=== PATIENT | female | born 1995 | race Caucasian/White ===

== ENCOUNTER → 2016-05-02 | Outpatient (REF) ==
[2016-05-02 16:38] LABS: HIV 1/2 Antibodies Non-Reactive; HIV-1p24 Antigen Non-Reactive
== END ==
LOC: ZLAB.WCH 15:47
PROVIDERS: Family Medicine
DX: Z01.89 Encounter for other specified special examinations (principal)

== ENCOUNTER → 2016-05-03 | Outpatient (REF) ==
[2016-05-03 13:13] LABS: CHLAMYDIA/TRACH by PCR Female NOT DETECTED; NEISSERIA GON by PCR Female NOT DETECTED
== END ==
LOC: ZLAB.WCH 11:35
PROVIDERS: Family Medicine
DX: Z01.89 Encounter for other specified special examinations (principal)

== ENCOUNTER → 2016-05-15 | Outpatient (REF) | LOC: ZLAB.WCH 10:27 | DX: Z01.89 Encounter for other specified special examinations (principal) ==

== ENCOUNTER → 2016-12-26 | Outpatient (REF) | LOC: ZLAB.WCH 08:37 | DX: Z01.89 Encounter for other specified special examinations (principal) ==

== ENCOUNTER 2017-11-24 21:08 | Outpatient (CLI) | payer BC ==
[~2017-11-24] VITALS: Ht 162.6 cm; Wt 77.7 kg
[2017-11-24] MEDS ORDERED: PRENATA1 CTB PO (21:43)
[2017-11-24 21:44] VITALS: BP 123/75; PULSE 75; TEMP 98.1
[2017-11-24] MEDS ORDERED: NATURAL IRON65 MG PO (21:44)
== END 2017-11-24 22:55 | disposition home or self-care (01) ==
LOC: LDRO 21:08
DX: Z34.93 Encounter for supervision of normal pregnancy, unspecified, third trimester (principal); Z3A.39 39 weeks gestation of pregnancy

== ENCOUNTER 2017-11-29 00:15 | Inpatient (IN) | payer BC ==
[2017-11-29] VITALS (52 sets, daily range): BP systolic 106–149; BP diastolic 53–92; PULSE 64–93; TEMP 97.9–98.7
[~2017-11-29] VITALS: Ht 160 cm; Wt 78.6 kg
[~2017-11-29 00:15] MED LIST: NATURAL IRON65 MG PO; PRENATA1 CTB PO
[2017-11-29 04:13] LABS: HEMOGLOBIN 10.1 g/dl (12.5-16.0); MEAN CELL VOLUME 89 fl (80.0-100.0); MEAN CORPUSCULAR HEMOGLOBIN 28 pg (27.0-31.0); MEAN CORPUSCULAR HGB CONC 32 g/dl (33.0-37.0); MEAN PLATELET VOLUME 12.1 fl (7.4-10.4); PLATELET COUNT 216 K/mm3 (130-400); REDCELL DISTRIBUTION WIDTH-CV 14.4 % (11.5-14.5)
[2017-11-29 07:52] LABS: BAND 19 % (0-10); EOSINOPHIL 1 % (0-4); LYMPHOCYTE 24 % (20.0-51.0); NEUTROPHILS 50 % (42.0-75.2); PLATELET ESTIMATE NORMAL (NORMAL)
[2017-11-30 02:45] VITALS: BP 117/66; PULSE 71; TEMP 98
[2017-11-30 07:10] VITALS: BP 120/70; PULSE 84; TEMP 98.4
[2017-11-30 16:49] VITALS: BP 125/85; PULSE 83; TEMP 98.3
[2017-11-30 20:25] VITALS: BP 111/59; PULSE 76; TEMP 97.5
[2017-12-01 07:00] VITALS: BP 134/73; PULSE 80
[2017-12-01] MEDS ORDERED: IBU800 M1 PO (08:28)
== END 2017-12-01 12:35 | disposition home or self-care (01) | DRG 807 ==
LOC: LDRO 00:15 → OB 02:45 → LDR 02:45 → OB 17:00
PROVIDERS: Obstetrics & Gynecology
PROC: 10E0XZZ Delivery of Products of Conception, External Approach (ICD-10-PCS; principal; 2017-11-29)
PROC: 0HQ9XZZ Repair Perineum Skin, External Approach (ICD-10-PCS; 2017-11-29)
PROC: 0UQMXZZ Repair Vulva, External Approach (ICD-10-PCS; 2017-11-29)
PROC: 10907ZC Drainage of Amniotic Fluid, Therapeutic from Products of Conception, Via Natural or Artificial Opening (ICD-10-PCS; 2017-11-29)
DX: O99.89 Other specified diseases and conditions complicating pregnancy, childbirth and the puerperium (principal); Z37.0 Single live birth; N87.9 Dysplasia of cervix uteri, unspecified; Z3A.40 40 weeks gestation of pregnancy; O71.82 Other specified trauma to perineum and vulva; O70.0 First degree perineal laceration during delivery; O62.2 Other uterine inertia; O76 Abnormality in fetal heart rate and rhythm complicating labor and delivery; O99.824 Streptococcus B carrier state complicating childbirth; O99.02 Anemia complicating childbirth; D64.9 Anemia, unspecified; O77.0 Labor and delivery complicated by meconium in amniotic fluid
CPT/HCPCS: J2405; J2540; J2590; J2795; J7120

== ENCOUNTER → 2020-09-18 | Outpatient (REF) ==
[~2020-09-18] MED LIST changes: +IBU800 M1 PO; +NORCO 325 MG-51 TAB PO
== END ==
LOC: COL.LAB 12:46
DX: Z20.822 Contact with and (suspected) exposure to COVID-19 (principal)

== ENCOUNTER 2020-10-08 15:32 | Emergency (ER) | payer SELFPAY ==
[~2020-10-08] VITALS: Ht 162.6 cm; Wt 77.3 kg
[~2020-10-08 15:32] MED LIST changes: -NORCO 325 MG-51 TAB PO
[2020-10-08 17:59] LABS: COLLECTION METHOD CLEAN CATCH
[2020-10-08 18:11] LABS: MUCOUS Present /lpf; PH 5 (5-8); SQUAMOUS EPITHELIAL 0-2 /hpf; URINE APPEARANCE Clear; URINE BACTERIA None Seen /hpf; URINE BILIRUBIN Negative (NEGATIVE); URINE BLOOD Negative (NEGATIVE); URINE COLOR Yellow; URINE GLUCOSE Negative (NEGATIVE); URINE KETONE Negative (NEGATIVE); URINE LEUKOCYTE ESTERASE Negative (NEGATIVE); URINE NITRATE Negative (NEGATIVE); URINE PROTEIN(semi-quant) Negative (NEGATIVE); URINE RBC 0-2 /hpf; URINE UROBILINOGEN Negative (NEGATIVE)
[2020-10-08 18:46] LABS: BASO % 0.3 % (0.0-2.0); EOS # 0.2 (0.0-0.7); GRAN # 5.5 (1.4-6.5); GRAN % 61.8 % (42.2-75.2); HEMATOCRIT 41.2 % (37.0-47.0); HEMOGLOBIN 13.4 g/dl (12.5-16.0); LYMPH # 2.4 (1.2-3.4); LYMPH % 26.8 % (20.0-51.0); MEAN CELL VOLUME 93 fl (80.0-100.0); MEAN CORPUSCULAR HEMOGLOBIN 30 pg (27.0-31.0); MEAN CORPUSCULAR HGB CONC 33 g/dl (33.0-37.0); MEAN PLATELET VOLUME 10.1 fl (7.4-10.4); MONO # 0.8 (0.1-0.6); MONO % 8.8 % (1.7-9.3); PLATELET COUNT 315 K/mm3 (130-400); RED BLOOD COUNT 4.42 M/mm3 (4.10-5.30); REDCELL DISTRIBUTION WIDTH-CV 12.4 % (11.5-14.5)
[2020-10-08 18:56] LABS: ALBUMIN 4.9 gm/dL (3.5-5.0); BILIRUBIN,TOTAL 0.5 mg/dL (0.0-1.0); C-REACTIVE PROTEIN 0.8 mg/dL (0.0-0.9); CALCIUM 9.8 mg/dL (8.4-10.2); CREATININE, serum 0.61 (0.52-1.25); POTASSIUM 4.9 mmol/L (3.4-5.0); TOTAL PROTEIN 9.2 gm/dL (6.4-8.2)
[2020-10-08] MEDS ORDERED: NORCO 325 MG-51 TAB PO (19:41)
[2020-10-08 20:13] VITALS: BP 138/90; PULSE 75; TEMP 98.7
== END 2020-10-08 20:13 | disposition home or self-care (01) ==
LOC: COL.ER 15:32
PROVIDERS: Physician Assistant
DX: R10.31 Right lower quadrant pain (principal); R11.2 Nausea with vomiting, unspecified; Z32.02 Encounter for pregnancy test, result negative
CPT/HCPCS: J1885; J2405; J7030

== ENCOUNTER 2022-02-17 11:42 | Emergency (ER) | payer BC ==
[~2022-02-17] VITALS: Ht 162.6 cm; Wt 70.5 kg
[~2022-02-17 11:42] MED LIST changes: +NORCO 325 MG-51 TAB PO
[2022-02-17 11:47] VITALS: TEMP 97.8
[2022-02-17 13:57] LABS: COLLECTION METHOD CLEAN CATCH
[2022-02-17 14:09] LABS: MUCOUS Present (NOT PRESENT); SQUAMOUS EPITHELIAL 0-2 /hpf (0-10); URINE APPEARANCE Cloudy (CLEAR/HAZY); URINE BACTERIA None Seen /hpf (NONE SEEN); URINE COLOR Amber (YELLOW); URINE RBC >50 /hpf (0-2)
[2022-02-17 14:10] LABS: URINE GLUCOSE Negative (NEGATIVE); URINE KETONE TRACE (NEGATIVE); URINE NITRATE Negative (NEGATIVE); URINE PROTEIN(semi-quant) 1+ (NEGATIVE); URINE UROBILINOGEN 0.2 E.U/dL (0.2-1.0)
[2022-02-17 14:11] LABS: URINE BLOOD 3+ (NEGATIVE)
[2022-02-17 14:38] LABS: BASO % 0.3 % (0.0-2.0); EOS # 0.2 K/mm3 (0.0-0.7); GRAN # 5.6 K/mm3 (1.4-6.5); GRAN % 62.1 % (42.2-75.2); HEMOGLOBIN 11.3 g/dl (12.5-16.0); LYMPH # 2.4 K/mm3 (1.2-3.4); LYMPH % 26.5 % (20.0-51.0); MEAN CELL VOLUME 93 fl (80.0-100.0); MEAN CORPUSCULAR HEMOGLOBIN 31 pg (27-31); MEAN CORPUSCULAR HGB CONC 34 g/dl (33.0-37.0); MEAN PLATELET VOLUME 9.9 fl (7.4-10.4); MONO # 0.8 K/mm3 (0.1-0.6); MONO % 8.9 % (1.7-9.3); PLATELET COUNT 329 K/mm3 (130-400); RED BLOOD COUNT 3.61 M/mm3 (4.10-5.30); REDCELL DISTRIBUTION WIDTH-CV 12.4 % (11.5-14.5)
[2022-02-17 14:42] LABS: HEMATOCRIT 33.7 % (37.0-47.0)
[2022-02-17 14:44] LABS: INR 1.1 (0.8-3.0); PROTHROMBIN TIME 12.1 SECONDS (9.7-12.8)
[2022-02-17 14:47] LABS: PARTIAL THROMBOPLASTIN TIME 32.9 SECONDS (26.0-37.0)
[2022-02-17 14:56] LABS: ALBUMIN 3.9 gm/dL (3.5-5.0); BILIRUBIN,TOTAL 0.4 mg/dL (0.2-1.2); CALCIUM 9.5 mg/dL (8.4-10.2); CREATININE, serum 0.73 mg/dL (0.57-1.11); TOTAL PROTEIN 7.1 gm/dL (6.2-8.1)
[2022-02-17 15:21] VITALS: BP 117/63; PULSE 68
[2022-03-03] MEDS ORDERED: LYSTEDA650 MG PO (12:58)
[2022-08-25] MEDS ORDERED: PHENERGAN50 MG/SUPP RC (09:56)
[2022-11-11] MEDS ORDERED: ZOFRAN ODT4 MG PO (07:50)
[2022-11-11] MEDS ORDERED: VANTIN 200200 MG/TAB PO (09:08)
== END 2022-02-17 15:25 | disposition home or self-care (01) ==
LOC: COL.ER 11:42
PROVIDERS: Emergency Medicine
DX: N93.9 Abnormal uterine and vaginal bleeding, unspecified (principal); Z32.02 Encounter for pregnancy test, result negative

== ENCOUNTER 2023-02-25 21:53 | Outpatient (CLI) | payer MEDICAID ==
[~2023-02-25] VITALS: Ht 162.6 cm; Wt 78.6 kg
[~2023-02-25 21:53] MED LIST changes: +LYSTEDA650 MG PO; +PHENERGAN50 MG/SUPP RC; +VANTIN 200200 MG/TAB PO; +ZOFRAN ODT4 MG PO
--- NOTE | 2023-02-25 22:00 | NUR ---
PATIENT ARRIVED TO UNIT VIA WHEELCHAIR. PATIENT HAS COMPLAINTS OF CONTRACTIONS AND SEVERE PELVIC PAIN, DENIES VAGINAL BLEEDING OR LEAKING OF FLUID. PATIENT ASSISTED WITH CHANGING INTO HOSPTIAL GOWN. EFMX2.
[2023-02-25 22:30] VITALS: BP 132/79; PULSE 85; TEMP 97.6
[2023-02-25 23:00] VITALS: BP 139/74; PULSE 94
[2023-02-25] MEDS ORDERED: ZOVIRAX400 MG PO (23:14)
[2023-02-25 23:24] VITALS: BP 139/76; PULSE 91
--- NOTE | 2023-02-25 23:30 | NUR ---
PATIENT EDUCATED ON STAYING WELL HYDRATED, MONITORING CONTRACTIONS, KEEPIING SCHEDULED APPOINTMENTS. PATIENT VERBALIZES UNDERSTANDING. QUESTIONS ENCOURAGED AND ANSWERED. PATIENT AND SIGNIFICANT OTHER AMBULATORY OFF UNIT.
== END 2023-02-25 23:35 | disposition home or self-care (01) ==
LOC: LDRO 21:53 → LDR 22:09 → LDRO 23:35
DX: O47.9 False labor, unspecified (principal); Z3A.00 Weeks of gestation of pregnancy not specified
CPT/HCPCS: OP; J7120

== ENCOUNTER 2023-03-12 05:34 | Inpatient (IN) | payer MEDICAID ==
[2023-03-12] VITALS (20 sets, daily range): BP systolic 86–124; BP diastolic 44–72; PULSE 62–97; TEMP 98.3–98.4
[~2023-03-12] VITALS: Ht 161.3 cm; Wt 80.0 kg
[~2023-03-12 05:34] MED LIST changes: +ZOVIRAX400 MG PO
--- NOTE | 2023-03-12 05:40 | NUR ---
PT AMBULATES TO ROOM 213 WITH FIANCE. CHANGES INTO CLEAN GOWN AND VOIDS. PT PLACED ON EFM AND TOCO. CATEGORY 1 TRACING, PT DENIES CONTRACTIONS, LOF OR VAGINAL BLEEDING. IV PLACED IN LEFT FOREARM, LABS OBTAINED. IVF INFUSING. CONSENTS SIGN. PT VERBALIZED UNDERSTANDING OF THE PLAN. ADMISSIONS ASSESSMENT COMPLETED. NO OTHER CONCERNS REGARDING THE PATIENT AT THIS TIME.
[2023-03-12 06:30] LABS: MEAN CELL VOLUME 86 fl (80.0-100.0); MEAN CORPUSCULAR HGB CONC 32 g/dl (33.0-37.0); MEAN PLATELET VOLUME 11.3 fl (7.4-10.4); PLATELET COUNT 264 K/mm3 (130-400); REDCELL DISTRIBUTION WIDTH-CV 13.9 % (11.5-14.5)
[2023-03-12] MEDS ORDERED: FLONASE NASAL S16 GM NS (06:34)
[2023-03-12 06:45] LABS: HEMATOCRIT 30.8 % (37.0-47.0); HEMOGLOBIN 9.9 g/dl (12.5-16.0); MEAN CORPUSCULAR HEMOGLOBIN 28 pg (27-31)
[2023-03-12 07:05] LABS: BAND 2 % (0-10); EOSINOPHIL 1 % (0-4); LYMPHOCYTE 22 % (20.0-51.0); NEUTROPHILS 59 % (42.0-75.2); PLATELET ESTIMATE NORMAL (NORMAL)
--- NOTE | 2023-03-12 23:05 | NUR ---
PER PRIMARY RN REQUEST, THIS RN ADMINISTERED PAIN MEDICATION TO PATIENT. PT DENIES ANY NEEDS, NO OTHER CONCERNS REGARDING PT AT THIS TIME. CALL LIGHT AND WATER ON BEDSIDE TABLE WITHIN REACH.
[2023-03-13 02:10] VITALS: BP 95/44; PULSE 72; TEMP 98
[2023-03-13 06:36] LABS: HEMATOCRIT 25.5 % (37.0-47.0); HEMOGLOBIN 8.1 g/dl (12.5-16.0)
[2023-03-13] MEDS ORDERED: IBU600 MG PO (07:00)
[2023-03-13] MEDS ORDERED: PERCOCET 325 MG1 TA2 PO (07:00)
[2023-03-13 08:30] VITALS: BP 112/62; PULSE 80; TEMP 98.1
--- NOTE | 2023-03-13 09:40 | NUR ---
Initial visit; Patient thanked Senior Ui Designer for offering congratulations for the of their son. Senior Ui Designer thanked family for choosing [facility]/via [facility].
[2023-03-13 18:06] VITALS: BP 117/69; PULSE 74
[2023-03-13 20:15] VITALS: BP 124/62; PULSE 95; TEMP 98.3
[2023-03-14 09:00] VITALS: BP 127/84; PULSE 90; TEMP 98.1
[2023-03-14] MEDS ORDERED: FERRO-TIME325 MG PO (11:21)
--- NOTE | 2023-03-14 12:00 | NUR ---
Discharge instructions and follow up care reviewed with pt and at bedside. Both verbalized an understanding, agreed with the plan and states no questions at this time.
== END 2023-03-14 12:45 | disposition home or self-care (01) | DRG 787 ==
LOC: OB 05:34
PROVIDERS: ADMIT Obstetrics & Gynecology
PROC: 10D00Z1 Extraction of Products of Conception, Low, Open Approach (ICD-10-PCS; principal; 2023-03-12)
PROC: 0UB50ZX Excision of Right Fallopian Tube, Open Approach, Diagnostic (ICD-10-PCS; 2023-03-12)
DX: O24.420 Gestational diabetes mellitus in childbirth, diet controlled (principal); F84.5 Asperger's syndrome; O98.32 Other infections with a predominantly sexual mode of transmission complicating childbirth; O99.02 Anemia complicating childbirth; D64.9 Anemia, unspecified; O99.344 Other mental disorders complicating childbirth; F32.A Depression, unspecified; N83.8 Other noninflammatory disorders of ovary, fallopian tube and broad ligament; O99.892 Other specified diseases and conditions complicating childbirth; A60.09 Herpesviral infection of other urogenital tract; Z3A.39 39 weeks gestation of pregnancy; Z37.0 Single live birth; Z91.048 Other nonmedicinal substance allergy status; O99.284 Endocrine, nutritional and metabolic diseases complicating childbirth; E28.2 Polycystic ovarian syndrome
CPT/HCPCS: J0171; J0665; J0690; J1100; J1885; J2371; J2405; J2590; J7120

== ENCOUNTER 2023-08-20 19:51 | Emergency (ER) | payer MEDICAID ==
[~2023-08-20] VITALS: Ht 162.6 cm; Wt 78.2 kg
[~2023-08-20 19:51] MED LIST changes: +FERRO-TIME325 MG PO; +FLONASE NASAL S16 GM NS; +IBU600 MG PO; +PERCOCET 325 MG1 TA2 PO
[2023-08-20 20:10] LABS: COLLECTION METHOD CLEAN CATCH
[2023-08-20 20:18] LABS: URINE APPEARANCE CLEAR (CLEAR/HAZY); URINE BLOOD 2+ (NEGATIVE); URINE COLOR YELLOW (YELLOW); URINE GLUCOSE NEGATIVE (NEGATIVE); URINE KETONE NEGATIVE (NEGATIVE); URINE NITRATE NEGATIVE (NEGATIVE); URINE PROTEIN(semi-quant) 1+ (NEGATIVE)
[2023-08-20 20:37] LABS: MUCOUS PRESENT (NOT PRESENT); SQUAMOUS EPITHELIAL 0-2 /hpf (0-10); URINE BACTERIA MODERATE /hpf (NONE SEEN); URINE WBC 20-50 /hpf (0-2)
[2023-08-20] MEDS ORDERED: CEFTIN 250250 MG/TAB PO (20:55)
[2023-08-20] MEDS ORDERED: Cefuroxime 250 MG TAB PO ONE (21:00)
[2023-08-20 21:03] VITALS: BP 124/82; PULSE 71; TEMP 98.7
== END 2023-08-20 21:08 | disposition home or self-care (01) ==
LOC: COL.ER 19:51
PROVIDERS: Family Medicine
DX: N39.0 Urinary tract infection, site not specified (principal)